=== PATIENT | male | born 1975 | race Caucasian/White ===

== ENCOUNTER → 2025-02-13 07:15 | Outpatient (REF) | payer OTHER, SELFPAY | LOC: HWRCS 07:15 | PROVIDERS: ATTENDING PHYSICIAN Internal Medicine; FAMILY PHYSICIAN Student in an Organized Health Care Education/Training Program | DX: I25.10 Atherosclerotic heart disease of native coronary artery without angina pectoris (principal); I77.810 Thoracic aortic ectasia; I25.2 Old myocardial infarction | CPT/HCPCS: 93306 ==